=== PATIENT | female | born 1985 | race Asian ===

== ENCOUNTER 2017-07-15 09:58 | Inpatient (IN) | payer SELFPAY ==
[~2017-07-15] VITALS: Ht 154.9 cm; Wt 64.9 kg
[2017-07-19] MEDS ORDERED: OXYTOCIN 20 UNITS in LACTATED RINGERS 1,000 ML IV SCH (01:06)
[2017-07-19] MEDS ORDERED: PREN-546 PO (01:08)
[2017-07-19] MEDS ORDERED: FERR-252 PO (01:09)
[2017-07-19] MEDS ORDERED: IBUPROFEN 800 MG TAB PO PRN ×2 (01:10→17:50)
[2017-07-19] MEDS ORDERED: NALBUPHINE 10 MG/ML AMP IVP PRN (01:10)
[2017-07-19] MEDS ORDERED: METHYLERGONOVINE 0.2 MG/ML AMP IM PRN ×3 (01:10→17:50)
[2017-07-19] MEDS ORDERED: PROMETHAZINE 25 MG/ML VIAL IVP PRN (01:10)
[2017-07-19] MEDS ORDERED: CARBOPROST 250 MCG/ML AMP IM PRN (01:10)
[2017-07-19 01:19] VITALS: BP 105/62
[2017-07-19 01:36] LABS: APPEARANCE,URINE CLEAR (CLEAR); BILIRUBIN,URINE NEGATIVE (NEGATIVE); BLOOD, URINE NEGATIVE (NEGATIVE); COLOR,URINE YELLOW (YELLOW); LEUKOCYTE ESTERASE ,URINE NEGATIVE (NEGATIVE); NITRITE, URINE NEGATIVE (NEGATIVE); PH,URINE 6.5 (5.0-9.0); UGLUCOSE NEGATIVE (NEGATIVE)
[2017-07-19 01:37] LABS: BASOPHILS # (AUTO) 0.2 K/uL (0.00-0.22); BASOPHILS % (AUTO) 2.5 % (0.0-2.0); EOSINOPHILS # (AUTO) 0.1 K/uL (0-0.4); EOSINOPHILS % (AUTO) 0.9 % (0.0-4.0); HEMATOCRIT 38.6 % (36-48); HEMOGLOBIN 12.5 g/dL (12.0-16.0); LYMPHOCYTES # (AUTO) 1.4 K/uL (2.5-16.5); MEAN CORPUSCULAR HEMOGLOBIN 31 pg (27-31); MEAN CORPUSCULAR HGB CONC 32 g/dL (33-37); MEAN CORPUSCULAR VOLUME 94 fL (80-94); MONOCYTES # (AUTO) 0.5 K/uL (0.8-1.0); NEUTROPHILS # (AUTO) 5.3 K/uL (1.8-7.7); NEUTROPHILS % (AUTO) 71.6 % (42.2-75.2); PLATELET COUNT (AUTO) 170 K/uL (140-450); RED BLOOD CELL COUNT(AUTO) 4.09 MIL/uL (4.20-5.40); WHITE BLOOD COUNT (AUTO) 7.5 K/uL (4.8-10.8)
[2017-07-19] MEDS ORDERED: MISOPROSTOL 25 MCG TAB ONE (01:43)
[2017-07-19] MEDS: LACTATED RINGERS 1,000 ML IV SCH ×4 (02:00→13:26)
[2017-07-19 02:52] LABS: ANION GAP 14.4 (8-16); CARBON DIOXIDE 23.3 mmol/L (21-32); CREATININE 0.6 mg/dL (0.6-1.3); POTASSIUM 4.7 mmol/L (3.5-5.1)
[2017-07-19 02:53] LABS: ALBUMIN 2.4 g/dL (3.4-5.0); TOTAL BILIRUBIN 0.2 mg/dL (0.0-1.0)
[2017-07-19] MEDS ORDERED: BUPIVACAINE 0.125%/NS PREMIX 250 ML ONE (06:42)
[2017-07-19] MEDS ORDERED: BUPIVACAINE 0.125%/NS PREMIX 250 ML EPI SCH (07:15)
[2017-07-19] MEDS ORDERED: MISOPROSTOL 25 MCG TAB VG SCH (08:00)
--- NOTE | 2017-07-19 08:38 | NUR ---
PATIENT HAS BEEN SCREENED AND CATEGORIZED LOW NUTRITION RISK. PATIENT WILL BE SEEN WITHIN 7 DAYS OF ADMISSION. 07/25/[address]
[2017-07-19 11:30] LABS: RAPID PLASMA REAGIN NON-REACTIVE (Non Reactiv)
[2017-07-19] MEDS ORDERED: OXYTOCIN 10 UNITS/ML VIAL ONE (13:32)
[2017-07-19] MEDS ORDERED: OXYTOCIN 10 UNITS/ML VIAL IM SCH (15:00)
[2017-07-19] MEDS ORDERED: oxyCODONE/APAP 5/325 MG 1 TAB TAB PO PRN ×2 (17:50)
[2017-07-19] MEDS ORDERED: TEMAZEPAM 15 MG CAP PO PRN ×2 (17:50)
[2017-07-19] MEDS ORDERED: HYDROcodone/APAP 5/325 MG 1 TAB TAB PO PRN ×2 (17:50)
[2017-07-19] MEDS ORDERED: BENZOCAINE/MENTHOL 20%-0.5% 60 GM CAN TP PRN ×2 (17:50)
[2017-07-19] MEDS ORDERED: MEASLES, MUMPS, AND RUBELLA 1 VIAL SQVAC PRN ×2 (17:50)
[2017-07-19] MEDS ORDERED: OXYTOCIN 10 UNITS/ML VIAL IM PRN (17:50)
[2017-07-19] MEDS: IBUPROFEN 800 MG TAB PO PRN (20:50)
[2017-07-19] MEDS ORDERED: DOCUSATE SOD/SENNA 50/8.6 MG 1 TAB PO SCH ×2 (21:00)
[2017-07-20] MEDS: IBUPROFEN 800 MG TAB PO PRN ×3 (03:13→22:49)
[2017-07-20 05:53] LABS: HEMATOCRIT 32.7 % (36-48); HEMOGLOBIN 10.9 g/dL (12.0-16.0)
[2017-07-20] MEDS ORDERED: INFLUENZA VIRUS VACCINE QUAD 0.5 ML SYR IMVAC ONE (22:31)
[2017-07-21] MEDS ORDERED: INFLUENZA VIRUS VACCINE QUAD 0.5 ML SYR IMVAC SCH (21:00)
== END 2017-07-21 16:10 | disposition home or self-care (01) | DRG 775 ==
LOC: UNDOADMIN 09:58 → MLD 09:58 → MFCC 07-19 17:45
PROVIDERS: ADMIT Obstetrics & Gynecology; ATTEND Obstetrics & Gynecology
PROC: 10E0XZZ Delivery of Products of Conception, External Approach (ICD-10-PCS; principal; 2017-07-19)
PROC: 0W8NXZZ Division of Female Perineum, External Approach (ICD-10-PCS; 2017-07-19)
PROC: 10907ZC Drainage of Amniotic Fluid, Therapeutic from Products of Conception, Via Natural or Artificial Opening (ICD-10-PCS; 2017-07-19)
PROC: 3E0R3BZ Introduction of Anesthetic Agent into Spinal Canal, Percutaneous Approach (ICD-10-PCS; 2017-07-19)
PROC: 00HU33Z Insertion of Infusion Device into Spinal Canal, Percutaneous Approach (ICD-10-PCS; 2017-07-19)
PROC: 3E0234Z Introduction of Serum, Toxoid and Vaccine into Muscle, Percutaneous Approach (ICD-10-PCS; 2017-07-20)
PROC: 3E0234Z Introduction of Serum, Toxoid and Vaccine into Muscle, Percutaneous Approach (ICD-10-PCS; 2017-07-20)
DX: O69.1XX0 Labor and delivery complicated by cord around neck, with compression, not applicable or unspecified (principal); Z23 Encounter for immunization; Z37.0 Single live birth; Z3A.39 39 weeks gestation of pregnancy
CPT/HCPCS: 36415; 51702; 59200; 59409; 80053; 81003; 85018; 85025; 86592; 86886; 86900; 86901; 90658; 90715; J2590; J3490; J7120